=== PATIENT | female | born 1955 | race Caucasian/White ===

== ENCOUNTER → 2017-06-05 | Outpatient (CLI) | payer OTHER ==
[~2017-06-05] MED LIST: ADIPEX-P37.5 MG PO; ADVAIR IH; CYMBALTA 60MG60 MG PO; CYMBALTA60 MG PO; HCTZ 25MG25 MG PO; IMITREX 25MG TA25 MG PO; LODOSYN 25MG25 MG PO; PREMARIN 0.60.625 MG PO; RT ADVAIR 128 DISKUS; ZESTRIL40 MG PO
== END ==
LOC: MC.RAD 08:40
DX: Z12.31 Encounter for screening mammogram for malignant neoplasm of breast (principal)

== ENCOUNTER → 2018-06-15 | Outpatient (CLI) | payer MEDICARE | LOC: MC.RAD 14:10 | DX: Z12.31 Encounter for screening mammogram for malignant neoplasm of breast (principal) ==